=== PATIENT | male | born 1990 | race Caucasian/White ===

== ENCOUNTER 2024-12-24 10:28 | Emergency (ER) | payer OTHER, SELFPAY ==
--- NOTE | ~2024-12-24 | XR_ITS ---
Examination: XR hip LT 2V w AP pelvis Clinical History: fall, pain Comparison: None Technique: 2 views left hip with AP pelvis Findings/impression: No acute findings- 1. No fracture or dislocation left hip. 2. No pelvic fracture identified. Reviewed, dictated and finalized at location R. [employer]TING [employer]
[2024-12-24 10:58] VITALS: BP 152/85; PULSE 75; RESP 14; TEMP 36.6; O2SAT 99
--- OUTSIDE RECORDS SUMMARY | 2024-12-24 11:30 | XMS_ITS | Patient Health Record ---
Author Organization [facility] Address [address] [place] [address] Care Team Providers Care Cash Surrender Calculator Name Role Phone DealBishopin Primary Care Provider [phone] Allergies No Known Allergies Results Component Value Reference Range Notes CMP 14 Comprehensive Metabol ic Panel* Reviewed date:11/14/2024 01:33:32 PM Interpretation: Performing Lab:[facility], [address] [facility], Phone - [phone], Director - Andry Notes/Report: Glucose 87 70-99 mg/dL BUN 11 6-20 mg/dL Creatinine 1.06 0.76-1.27 mg/dL eGFR 94 >59 mL/min/1.73 BUN/Creatinine Ratio 10 9-20 Sodium 141 134-144 mmol/L Potassium 4.6 3.5-5.2 mmol/L Chloride 103 96-106 mmol/L Carbon Dioxide, Total 23 20-29 mmol/L Calcium 9.6 8.7-10.2 mg/dL Protein, Total 7.6 6.0-8.5 g/dL Albumin 5.1 4.1-5.1 g/dL Globulin, Total 2.5 1.5-4.5 g/dL Bilirubin, Total 0.4 0.0-1.2 mg/dL Alkaline Phosphatase 81 47-123 IU/L Pleas e note reference interval change AST (SGOT) 25 0-40 IU/L ALT (SGPT) 25 0-44 IU/L CBC With Differential/Platel et* Reviewed date:11/14/2024 01:33:32 PM Interpretation: Performing Lab:[facility], [address], [place], Phone - [phone], Director - Andry Notes/Report: WBC 9.8 3.4-10.8 x10E3/uL RBC 5.22 4.14-5.80 x10E6/uL Hemoglobin 16.1 13.0-17.7 g/dL Hematocrit 47.7 37.5-51.0 % MCV 91 79-97 fL MCH 30.8 26.6-33.0 pg MCHC 33.8 31.5-35.7 g/dL RDW 13.2 11.6-15.4 % Platelets 334 150-450 x10E3/uL Neutrophils 58 Not Estab. % Lymphs 34 Not Estab. % Monocytes 6 Not Estab. % Eos 1 Not Estab. % Basos 1 Not Estab. % Neutrophils (Absolute) 5.6 1.4-7.0 x10E3/uL Lymphs (Absolute) 3.3 0.7-3.1 x10E3/uL Monocytes(Absolute) 0.6 0.1-0.9 x10E3/uL Eos (Absolute) 0.1 0.0-0.4 x10E3/uL Baso (Absolute) 0.1 0.0-0.2 x10E3/uL Immature Granulocytes 0 Not Estab. % Immature Grans (Abs) 0.0 0.0-0.1 x10E3/uL HIV Screen *HIV 1, 2 Ab, p24 Ag ([id number]) Reviewed date:11/14/2024 01:33:32 PM Interpretation: Performing Lab:[facility] [place], [address] [place] [address], Phone - [phone], [facility] Notes/Report: HIV Ab/p24 Ag Screen Non Reactive Non Reactive HIV-1/HIV-2 antibodies and HIV-1 p24 antigen were NOT detected. There is no laboratory evidence of HIV infection. HIV Negative Hepatitis B Surf Ab Quant* Reviewed date:11/14/2024 01:33:32 PM Interpretation: Performing Lab:[facility] [place], [address] [facility], Phone - [phone], Director [facility] Notes/Report: Hepatitis B Surf Ab Quant 13.6 Immunity>10 mIU /mL Status of Immunity Anti-HBs Level Inconsistent with Immunity 0.0 - 10.0 Consistent with Immunity >10.0 Hepatitis B Surface Antigen (HBsAg Screen) Reviewed date:11/14/2024 01:33:32 PM Interpretation: Performing Lab:[address], Phone - [phone], Director - [facility] Notes/Report: HBsAg Screen Negative Negative Hepatitis C Virus Antibody w /Rflx to Quantitative Real-time PCR ([id number]) Reviewed date:11/14/2024 01:33:32 PM Interpretation: Performing Lab:[facility] [address], Phone - [phone], Director - [facility] Notes/Report: HCV Ab Non Reactive Non Reactive Interpretation: Not infected with HCV unless early or acute infection is suspected (which may be delayed in an immunocompromised individual), or other evidence exists to indicate HCV infection. Lipid Panel* Reviewed date:11/14/2024 01:33:32 PM Interpretation: Performing Lab:[facility], Phone - [phone], Director - [facility] Notes/Report: Cholesterol, Total 247 100-199 mg/dL Triglycerides 84 0-149 mg/dL HDL Cholesterol 50 >39 mg/dL VLDL Cholesterol Sebastian 14 5-40 mg/dL LDL Chol Calc (NIH) 183 0-99 mg/dL Hemoglobin A1c* Reviewed date:11/14/2024 01:33:32 PM Interpretation: Performing Lab:[facility] [address], Phone - [phone], Director - [facility] Notes/Report: Hemoglobin A1c 5.3 4.8-5.6 % . Prediabetes: 5.7 - 6.4 Diabetes: >6.4 Glycemic control for adults with diabetes: <7.0 Reason For Referral No Information Medications Medication SIG (Take, Route, Frequency, Duration) Notes Start Date End Date Status Losartan Potassium 100 MG 1 tablet Orall y Once a day; Duration: 90 days 05/21/2024 Active buPROPion HCl ER (XL) 300 MG 1 tablet in the morning Orally Once a day; Duration: 90 days Active Social History Tobacco Use: Social History Observation Description Date Details (start date - stop date) Unknown Sex Assigned At : Social History Observation Description Sex Assigned At Male Tobacco Control (Standard) Question Answer Notes Tobacco use: Uses tobacco in other forms Additional Findings: Tobacco user Snuff user Problems Problem Type SNOMED Code ICD Code Onset Dates Problem Status W/U Status Risk Notes Problem Hypertension (25001662) Hypertension (I10) Active confirmed Problem Depression (591547996) Depression (F32.9) Active confirmed Vital Signs Heart Rate 82 /min 11/08/2024 Temperature 98.6 degrees Fahrenheit 11/08/2024 Respiratory Rate 16 /min 11/08/2024 Blood pressure diastolic 86 mm Hg 11/08/2024 Oximetry 98 % 11/08/2024 Height 69in in 11/08/2024 Blood pressure systolic 130 mm Hg 11/08/2024 Weight 184lbs lbs 11/08/2024 BMI 27.17 kg/m2 11/08/2024 Encounters Encounter Location Date Provider Diagnosis [address] [address] 05/21/2024 Kyle Deal Dorsalgia of lumbosacral region M54.50 ; Hypertension I10 ; Chest pain R07.9 ; Depression F32.9 ; 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 ; Fatigue R53.83 and Exposure to potential infection Z20.[address] [address] 06/21/2024 Kyle Deal Hypertension I10 and Depression F32.[address] [address] 11/08/2024 Kyle Deal Hypertension I10 ; Depression F32.9 ; Chest pain R07.9 ; Exposure to potential infection Z20.9 ; Lipid screening Z13.220 and Screening for diabetes mellitus Z13.[address] [address] 06/18/2024 Kyle Deal Hypertension I10 [address] [address] 10/29/2024 Kyle Deal Hypertension I10 and Depression F32.9 Assessments Encounter Date Diagnosis (ICD Code) Assessment Notes Treatment Notes Treatment Clinical Notes Section Notes 05/21/2024 Dorsalgia of lumbosacral region (ICD-10 - M54.50) KNEE PILLOW, GOOD BODY MECHANICS, USE TYLENOL NEEDED 11/08/2024 Hypertension (ICD-10 - I10) 11/08/2024 Depression (ICD-10 - F32.9) 10/29/2024 Hypertension (ICD-10 - I10) 06/18/2024 Hypertension (ICD-10 - I10) 06/21/2024 Hypertension (ICD-10 - I10) 06/21/2024 Depression (ICD-10 - F32.9) 05/21/2024 Hypertension (ICD-10 - I10) MEDITERRANEAN DIET, AVOID PROCESSED SUGAR, SALT, FLOUR. AVOID IBUPROFEN AND NAPROXEN. 05/21/2024 Chest pain (ICD-10 - R07.9) LAB AND EKG DEFERRED UNTIL INSURANCE COVERAGE. GO TO ED IF CHEST PAIN BECOMES PROLONGED OR SEVERE. 10/29/2024 Depression (ICD-10 - F32.9) 11/08/2024 Chest pain (ICD-10 - R07.9) Cliniically musculoskeletal 11/08/2024 Exposure to potential infection (ICD-10 - Z20.9) 05/21/2024 Depression (ICD-10 - F32.9) 05/21/2024 Lipoma of anterior chest wall (ICD-10 - D17.1) 11/08/2024 Lipid screening (ICD-10 - Z13.220) 11/08/2024 Screening for diabetes mellitus (ICD-10 - Z13.1) 05/21/2024 Fatigue (ICD-10 - R53.83) 05/21/2024 Exposure to potential infection (ICD-10 - Z20.9) 11/08/2024 Other DISCUSSED MODERATING CANNABIS FROM 2 BLUNTS PER EVENING DOWN TO 1 BLUNT PER EVENING Plan Of Treatment No Information Insurance Providers Payer Name Payer Address Payer Phone Subscriber Number Group Number Insured Name Patient Relationship to Insured Coverage Start Date Coverage End Date [employer] [place] [phone] [id number] Truong He Self - patient is the insured
[2024-12-24] MEDS: IBUPROFEN 400 MG TABLET PO (11:41)
[2024-12-24 11:45] VITALS: BP 126/87; PULSE 68; RESP 15; O2SAT 98
--- NOTE | 2024-12-24 16:13 | ED_ITS ---
HPI - Extremity Injury (Lower) General Chief Complaint: Extremity Injury, Lower Stated Complaint: hip pain x 2 weeks Time Seen by Provider: 12/24/24 11:16 History of Present Illness HPI Narrative: Patient was at work 2 weeks ago when he thinks he twisted his hip wrong, since then he has had some discomfort to his hip, his left ankle. Needs a work note. He has been able to ambulate without issues. Related Data Allergies Allergy/AdvReac Type Severity Reaction Status Date / Time No Known Allergies Allergy Verified 12/24/24 10:29 Review of Systems Review of Systems: All systems reviewed & are unremarkable except as noted in HPI and below Exam Narrative: EXAMINATION OF ORGAN SYSTEMS/BODY AREAS: Constitutional: Vital signs per nursing GENERAL:[No acute distress, non-toxic appearing.] HEAD: Normal with no signs of head trauma. EYES: EOMI, conjunctiva normal ENT: Hearing grossly intact LUNGS: Nonlabored breathing. HEART: [Regular rate and rhythm] ABD: [Soft], [nontender to palpation] EXT: Normal range of motion SKIN: [No rashes or lesions.] NEURO: [Alert and oriented x 3. No gross focal sensory or strength deficits.] Ambulating with normal steady gait PSYCH: Normal affect Course Vital Signs Vital signs: Vital Signs Temperature 97.9 F 12/24/24 10:58 Pulse Rate 75 12/24/24 10:58 Respiratory Rate 14 12/24/24 10:58 Blood Pressure 152/85 H 12/24/24 10:58 Pulse Oximetry 99 12/24/24 10:58 Oxygen Delivery Room Air 12/24/24 10:58 Temperature 97.9 F 12/24/24 10:58 Pulse Rate 68 12/24/24 11:45 Respiratory Rate 15 12/24/24 11:45 Blood Pressure 126/87 12/24/24 11:45 Pulse Oximetry 98 12/24/24 11:45 Oxygen Delivery Room Air 12/24/24 10:58 MDM - Extremity Injury (Lower) MDM Narrative Medical decision making narrative: Patient presenting with some discomfort to his left hip, feels like he might have strained it. X-ray unremarkable for acute dislocation or fracture. Patient given prescriptions for pain medication and follow-up to ortho as needed with return precautions. Discharge Plan Discharge Clinical Impression: Hip sprain Patient Disposition: Home Condition: Stable Instructions: Hip Sprain (ED) Additional Instructions: Please follow up with your doctor; you can always return for any further issues. Patient Language: Bhutanese Prescriptions: New methocarbamol 750 mg tablet 750 mg PO TID PRN (Reason: muscle spasm) Qty: 30 0RF ibuprofen 600 mg tablet 600 mg PO TID PRN (Reason: fever or pain) Qty: 30 0RF Follow-up/Referrals: PHYSICIAN,[employer] [Primary Care Provider, Internal Medicine] Mario Espinosa MD [Physician, Orthopedics] - 2 Days Stand Alone Forms: Work/School Release IP
== END 2024-12-24 11:47 | disposition home or self-care (01) ==
PROVIDERS: Emergency Provider Emergency Medicine
DX: S73.102A Unspecified sprain of left hip, initial encounter (principal); X50.0XXA Overexertion from strenuous movement or load, initial encounter
CPT/HCPCS: 73502; 99283; A9270